=== PATIENT | female | born 1975 | race Caucasian/White ===

== ENCOUNTER 2023-10-26 17:52 | Emergency (ER) | payer OTHER, SELFPAY ==
[2023-10-26] VITALS (12 sets, daily range): BP systolic 138–190; BP diastolic 85–112; PULSE 79–108; RESP 6–99; TEMP 36.7; O2SAT 96–100; BMI 35.8
--- NOTE | ~2023-10-26 | XR_ITS ---
EXAMINATION: XR WRIST, RIGHT CLINICAL INFORMATION: Fall, deformity. COMPARISON: None available. TECHNIQUE: Two views of the right wrist. FINDINGS: Comminuted, impacted and displaced distal radial fracture with likely intra-articular extension. The distal fragment is displaced radially and dorsally. Displaced ulnar styloid fracture. Significant surrounding soft tissue swelling. No unexpected radiopaque foreign bodies. XR/XR wrist RT min 3V IMPRESSION: 1. Comminuted, impacted and displaced distal radial fracture. 2. Displaced ulnar styloid fracture.
--- NOTE | ~2023-10-26 | XR_ITS ---
EXAMINATION: XR WRIST, RIGHT CLINICAL INFORMATION: Postreduction COMPARISON: Prereduction images TECHNIQUE: Two views of the right wrist. FINDINGS: Patient is now in a fiberglass splint which does obscure fine bony detail. There is is some improved angulation to the still distal dorsal angulated distal radial intra-articular fracture but this has improved in alignment from the reduction images. There is still step-off to the ulnar styloid fracture component. XR/XR wrist RT 2V IMPRESSION: Improved angulation to the distal radial fracture. There is still some step-off to the ulnar styloid fracture component.
--- NOTE | 2023-10-26 17:58 | ED.GENADULT ---
HPI - General Adult General Chief complaint: Extremity Injury, Upper Stated complaint: Fall, arm deformities Time Seen by Provider: 10/26/23 17:57 Source: patient, family (patient's daughter) and EMS Mode of arrival: EMS Limitations: no limitations History of Present Illness HPI narrative: Patient is a 48 year old assigned female at with no reported medical history presenting to the emergency department today with right wrist pain. Patient states that there was something slick on the floor when she slipped on it and landed on her outstretched right wrist. Patient denies any head strike, loss of consciousness, dizziness, lightheadedness, abdominal pain, nausea, vomiting, fever, chills, blurry vision, double vision, loss of vision, chest pain, difficulty breathing, shortness of breath, back pain, night sweats, pain with urination, increased urinary frequency, increased urinary urgency, blood in her urine or stool, syncope or a near syncopal episode, bowel incontinence, bladder incontinence, bowel retention, bladder retention, or any other complaints at this time. Onset (ago): minute(s) Location: right and upper extremity Radiation: non-radiation Severity: moderate Severity scale (1-10): 6 Quality: aching Pain Consistency: constant Relieving factors: immobilization Exacerbating factors: movement Associated symptoms: denies other symptoms Treatments prior to arrival: none Related Data Previous Rx's Medication Instructions Recorded oxycodone 10 mg tablet 10 mg PO Q6H PRN pain #7 tabs 10/26/23 Allergies Allergy/AdvReac Type Severity Reaction Status Date / Time No Known Allergies Allergy Verified 10/26/23 18:07 Review of Systems Constitutional: Constitutional: Reports no additional constitutional complaints, Denies chills, Denies fever(s) and Denies night sweats Eyes: Eyes: Reports no additional eye complaints, Denies blurry vision, Denies change in vision, Denies diplopia, Denies eye discharge, Denies loss of vision and Denies eye pain ENT: Denies dizziness Cardiovascular: Cardiovascular: Reports no additional cardiovascular complaints, Denies chest pain, Denies lightheadedness, Denies Loss of Consciousness and Denies dyspnea Respiratory: Respiratory: Reports no additional respiratory complaints and Denies dyspnea Gastrointestinal: Gastrointestinal: Reports no additional gastrointestinal complaints, Denies abdominal pain, Denies melena, Denies hematochezia, Denies change in bowel habits and Denies change in stool character Genitourinary: Genitourinary: Denies hematuria, Denies urinary frequency, Denies dysuria, Denies urinary incontinence, Denies urinary hesitancy and Denies urinary urgency Musculoskeletal: Musculoskeletal: Reports no additional musculoskeletal complaints, Denies numbness and Denies tingling Comments: right wrist pain Neurologic: Denies dizziness, Denies loss of vision, Denies numbness and Denies tingling Psychiatric: Psychiatric: Reports no additional psychiatric complaints Endocrine: Endocrine: Reports no additional endocrine complaints Hematologic/Lymphatic: Hematologic/Lymphatic: Reports no additional hematologic/lymphatic complaints Allergic/Immunologic: Allergic/Immunologic: Reports no additional allergic/immunologic complaints PMFSH Past Medical History Attestation statement: The following information was validated with the patient. (patient's daughter validated all information) Source: old records reviewed, obtained from family (patient's daughter provided additional history and confirmed the history provided by the patient) and nursing notes reviewed Social History Social History Smoked in Last 30 Days: Yes Use of substances other than those prescribed or required for medical reasons: No Advance Directives: No Advance Directives Information Provided: No Patient : No Physical Exam ED Vital Signs: Vital Signs - 24 hr 10/26/23 18:10 10/26/23 18:57 10/26/23 19:00 Temperature 98.0 F Pulse Rate 94 89 97 Respiratory Rate 20 14 15 Blood Pressure 147/89 H 138/88 Pulse Oximetry 97 99 96 Oxygen Delivery Method Room Air Nasal Cannula Nasal Cannula Oxygen Flow Rate 100 2 10/26/23 19:03 10/26/23 19:10 10/26/23 19:15 Temperature Pulse Rate 97 103 H 108 H Respiratory Rate 14 6 L 10 L Blood Pressure 138/88 190/112 H 183/103 H Pulse Oximetry 100 98 100 Oxygen Delivery Method Oxygen Flow Rate 10/26/23 19:16 10/26/23 19:17 10/26/23 19:19 Temperature Pulse Rate 100 101 H 96 Respiratory Rate 10 L 10 L 8 L Blood Pressure 183/103 H 183/103 H 172/95 H Pulse Oximetry 99 99 Oxygen Delivery Method Nasal Cannula Oxygen Flow Rate 5 10/26/23 19:24 10/26/23 20:00 Temperature Pulse Rate 91 79 Respiratory Rate 10 L 99 H Blood Pressure 163/97 H 146/85 H Pulse Oximetry 100 100 Oxygen Delivery Method Nasal Cannula Room Air Oxygen Flow Rate 5 BMI result Body Mass Index 35.8 Const General: cooperative, no acute distress, alert and awake Nutritional Appearance: well nourished Orientation/consciousness: patient oriented x3 Limitations: no limitations HENMT Head: Yes normal to inspection and Yes atraumatic Ears: hearing grossly normal bilaterally and external ears normal General nose exam: Normal external nose present, no nasal discharge noted and no epistaxis Face and sinus: Yes normal facial exam, No abrasion and No laceration Mouth: Normal oral and palatal mucosa present, no drooling and no muffled voice Eyes General: appearance normal, both eyes and all related structures Periorbital: periorbital findings normal Eyelids: Yes eyelids normal Conjunctivae: conjunctivae normal Pupils: Equal, round and reactive pupils present EOM: EOMs intact bilaterally Neck Neck: Yes normal visual inspection, Yes full ROM and Yes no lymphadenopathy Chest Chest palpation & inspection: normal inspection of the chest Resp Effort & Inspection: normal respiratory effort and able to speak in complete sentences GI Inspection: Yes normal to inspection Neuro General: patient oriented x3 and moves all extremities Cranial nerves: Yes Equal, round and reactive pupils present Cognition (Neuro): normal cognition Motor exam (neuro): 5/5 motor strength present throughout Sensory Exam: Normal double simultaneous stimulation for sensation Coordination: [id number] test normal Extrem Other: obvious right wrist deformity, pain with palpation to the right wrist General: Yes capillary refill normal Psych Appearance: grossly normal Mental Status: mental status grossly normal Affect: normal affect Attitude: cooperative Thought process: Normal thought process present Thought content: Normal thought content present Insight: Good insight present (Psych) Course Reevaluation(s) Reevaluation #1: I witnessed the sedation and reduction by Giancarlo PAC Time: 19:16 Medications Administered Discontinued Medications Generic Name Dose Route Start Last Admin Trade Name Freq PRN Reason Stop Dose Admin Bupivacaine HCl 10 ml 10/26/23 19:00 10/26/23 19:05 Bupivacaine Mpf 0.25 % 10 Ml Vial IJ 10/26/23 19:01 10 ml ONCE ONE Administration Ketamine HCl 100 mg 10/26/23 19:00 10/26/23 19:05 Ketamine Hcl/Ns 50 Mg/5 Ml Syringe 1 mg/kg (97.522 mg) 10/26/23 19:01 100 mg IVPUSH Administration ONCE ONE Lidocaine HCl 10 ml 10/26/23 18:36 10/26/23 19:05 Lidocaine Hcl 1 % Mpf 5 Ml Vial SUBCUT 10/26/23 18:37 10 ml ONCE ONE Administration Morphine Sulfate 4 mg 10/26/23 18:22 10/26/23 18:23 Morphine Sulfate 4 Mg/Ml Cartridge IVPUSH 10/26/23 18:23 4 mg ONCE ONE Administration Protocol Naloxone HCl 8 mg 10/26/23 21:17 10/26/23 21:24 Naloxone Hcl Nasal Take Home 4 Mg Miles NOSTRILALT 10/26/23 21:18 8 mg ONCE ONE Administration Ondansetron HCl 4 mg 10/26/23 18:22 10/26/23 18:23 Ondansetron Hcl 4 Mg/2 Ml Vial IVPUSH 10/26/23 18:23 4 mg ONCE ONE Administration Oxycodone HCl 10 mg 10/26/23 21:13 10/26/23 21:24 Oxycodone Hcl Immed Release 5 Mg Tablet PO 10/26/23 21:14 10 mg ONCE ONE Administration Procedures Orthopedic Fracture Reduction Fracture #1: Time Out Performed: Yes Side: right Fracture Reduction Location: radius and ulna Analgesia: procedural sedation and hematoma block Technique: direct manipulation and traction/counter-traction Post Reduction X-rays Demonstrate: anatomical reduction Post-reduction neuro exam: intact Post-reduction vascular exam: intact Splint Applied: Yes Patient Tolerated Procedure: well Orthopedic Splinting/Casting Injury #1: Side: right Upper Extremity Injury Location: wrist Upper Extremity Immobilizer: sling/shoulder immobilizer and sugar tong splint Procedural Sedation Indication: fracture/dislocation reduction ASA Class: II Mallampati Class: II Time of Last PO Intake: 16:30 Preparation: radiographer cardiac catheterization applied, pulse oximeter, capnometry used, supplemental O2 applied, suction/airway equipment at bedside and IV secured Ketamine: IV Ketamine dose (mg): 100 Patient Tolerated Procedure: well Complications: none Medical Decision Making Medical Decision Making MDM Narrative: Patient is a 48 year old assigned female at with no reported medical history presenting to the emergency department today with right wrist pain. Patient's physical exam was as noted in the physical exam portion of this note. Patient's right wrist x-ray showed a comminuted, impacted, and displaced distal radial and ulnar styloid fracture. I consulted with my attending physician, Dr. Ramachandran. Patient was sedated and the fractures were reduced. Patient's PMS was intact prior to and after reduction. I performed hematoma block into the right wrist. Patient's right wrist was placed in a sugar tong splint, without incident. Patient's PMS was intact prior to and after splint placement. Patient's right arm was placed in a sling for support. Patient's PMS was intact prior to and after sling placement. Patient's right wrist post-reduction x-ray showed improved angulation to the distal radial fracture. I consulted the orthopedic team who recommended splint, sling, and having the patient follow up outpatient. I explained my physical exam findings as well as all test results to the patient and the patient's daughter. I answered all questions asked by the patient and the patient's daughter. I stressed the importance of the patient taking her medication as prescribed. I stressed the importance of the patient following up with her primary care provider and an orthopedic provider. I stressed the importance of the patient returning to the emergency department immediately if her symptoms were to worsen or if she were to develop any dizziness, shortness of breath, difficulty breathing, chest pain, blurry vision, loss of vision, nausea, vomiting, abdominal pain, fever, chills, back pain, or any other complaints. Patient and the patient's daughter verbalized agreement and understanding with this treatment plan and discharge. Differential Diagnosis Differential Diagnoses: The differential diagnosis associated with the presentation includes Ulnar fracture Radial fracture Wrist dislocation Admission/Observation Consideration of admission/observation: Escalation of care including admission/observation considered Patient would have been admitted to the hospital had her work up had any findings where hospital admission was appropriate and her clinical presentation warranted hospital admission. Consult Healthcare Provider Management of the patient was discussed with: Business Relationship Manager (spoke with the orthopedic team as noted in the MDM Rationale portion of this note.) Independent Interpretation I performed an independent interpretation of an: Plain X-Ray Interpretation: My interpretation is in agreement with the radiologist's impression of these imaging studies. EXAMINATION: XR WRIST, RIGHT CLINICAL INFORMATION: Fall, deformity. COMPARISON: None available. TECHNIQUE: Two views of the right wrist. FINDINGS: Comminuted, impacted and displaced distal radial fracture with likely intra-articular extension. The distal fragment is displaced radially and dorsally. Displaced ulnar styloid fracture. Significant surrounding soft tissue swelling. No unexpected radiopaque foreign bodies. XR/XR wrist RT min 3V IMPRESSION: 1. Comminuted, impacted and displaced distal radial fracture. 2. Displaced ulnar styloid fracture. Dictated By: Daisy Waggoner Signed By: Electronically signed by Daisy Waggoner 10/26/23 1846 EXAMINATION: XR WRIST, RIGHT CLINICAL INFORMATION: Postreduction COMPARISON: Prereduction images TECHNIQUE: Two views of the right wrist. FINDINGS: Patient is now in a fiberglass splint which does obscure fine bony detail. There is is some improved angulation to the still distal dorsal angulated distal radial intra-articular fracture but this has improved in alignment from the reduction images. There is still step-off to the ulnar styloid fracture component. XR/XR wrist RT 2V IMPRESSION: Improved angulation to the distal radial fracture. There is still some step-off to the ulnar styloid fracture component. Dictated By: Paul Dunn MD Signed By: Electronically signed by Paul Dunn MD 10/26/231938 Radiology Impression Discussion of test interpretation with radiology: I have reviewed the radiologist's reading. Independent Historian Clinical information obtained from an independent historian. History obtained from or confirmed by: EMS (EMS provided additional history and confirmed the history provided by the patient.) and Other (patient's daughter provided additional history and confirmed the history provided by the patient.) Prescription Management I considered prescription management with: Pain Medication (patient prescribed pain medication) Critical Care Time Critical Care Time Critical Care Time: Yes Total Critical Care Time: 55 Attestation: I spent 55 minutes of Critical Care Time with this patient. This does not include time spent on separately reported billable procedures. Discharge Plan Discharge Clinical Impression: Fracture of wrist, Fracture, radius, Ulnar fracture Patient Disposition: Home, Self-Care Instructions: Wrist Fracture in Adults (ED) Additional Instructions: Follow up with your primary care provider and an orthopedic provider. Only take the prescribed medication for breakthrough pain. If you begin to have any worsening numbness or tingling to the right fingers, you may loosen the DEWEY wrap on your splint, if that does not help - return to the emergency department immediately. Return to the emergency department immediately if your symptoms worsen or if you develop any dizziness, shortness of breath, difficulty breathing, chest pain, blurry vision, loss of vision, nausea, vomiting, abdominal pain, fever, chills, back pain, or any other complaints. Prescriptions: New oxycodone 10 mg tablet 10 mg PO Q6H PRN (Reason: pain) Qty: 7 0RF Rx Instructions: Partial Fill upon patient request. Referrals: [facility] [place] [facility] [Provider Group] (Call to establish and follow up with a primary care provider. If you already have a primary care provider, please follow up with them.) [facility] [place] [facility] [Provider Group] (Call to establish and follow up with a primary care provider. If you already have a primary care provider, please follow up with them.) [facility] [place] [facility] [Provider Group] (Call to establish and follow up with a primary care provider. If you already have a primary care provider, please follow up with them.) [facility] [place] [facility] [Provider Group] (Call to establish and follow up with an orthopedic provider.) Stand Alone Forms: Work/School Release Interventions: ED Discharge Assessment Last Done: 10/26/23 21:40 Discharge Date/Time: 10/26/23 21:40 Print Language: Sinhala
--- NOTE | 2023-10-26 18:10 | PC.NURSE ---
a&ox4, vss and up to date aside from being slightly tachycardic. pt comes in by ambulance d/t possible r wrist fracture - pt slipped on hard wood floor at home - landed on r wrist - deformity/swelling noted. pt verbalizes numbness/tingling throughout right hand. unable to move fingers aside from pinky.
--- NOTE | 2023-10-26 18:20 | PC.NURSE ---
xray bedsdie at this time.
[2023-10-26] MEDS: Morphine Sulfate 4 MG/ML CARTRIDGE IVPUSH (18:23)
[2023-10-26] MEDS: ondansetron HCL 4 MG/2 ML VIAL IVPUSH (18:23)
--- NOTE | 2023-10-26 18:24 | PC.NURSE ---
medication's overridden from bonita d/t ALVA maria order - scanned/documented in MAR according to when medication was pulled. medication administered per provider order.
--- NOTE | 2023-10-26 18:46 | PC.NURSE ---
Pt moved from EMC4 to ED10 for conscious sedation to be performed. Report given to SILVANO Trejo at this time.
[2023-10-26] MEDS: BUPivacaine MPF 0.25 % 10 ML VIAL IJ (19:05)
[2023-10-26] MEDS: Ketamine HCl/NS 50 MG/5 ML SYRINGE 100 MG IVPUSH (19:05)
[2023-10-26] MEDS: Lidocaine HCl 1 % MPF 5 ML VIAL 10 ML SUBCUT (19:05)
--- NOTE | 2023-10-26 20:15 | PC.NURSE ---
Pt is A&Ox4, GCS 15, with warm,dry skin. Reports pain is starting to increase again but it at bay for now. ALVA Garza is speaking with ortho at this time.
[2023-10-26] MEDS: Naloxone HCl Nasal TAKE HOME 4 MG SPRAY 8 MG NOSTRILALT (21:24)
[2023-10-26] MEDS: oxyCODONE HCl Immed Release 5 MG TABLET 10 MG PO (21:24)
== END 2023-10-26 21:40 | disposition home or self-care (01) ==
LOC: HO.ED 21:25
PROVIDERS: Emergency Provider Emergency Medicine; PCP Pediatrics
DX: S52.91XA Unspecified fracture of right forearm, initial encounter for closed fracture (principal); M25.531 Pain in right wrist; W01.10XA Fall on same level from slipping, tripping and stumbling with subsequent striking against unspecified object, initial encounter; Y93.9 Activity, unspecified; Y92.9 Unspecified place or not applicable; Y99.9 Unspecified external cause status; Z79.899 Other long term (current) drug therapy
CPT/HCPCS: 25605; 29125; 73100; 73110; 96374; 96375; 99152; 99284; 99285; J0665; J2270; J2405

== ENCOUNTER 2023-10-31 09:35 | Outpatient (AMB) | payer OTHER, SELFPAY ==
--- NOTE | 2023-10-31 09:41 | A.OFFVIS_ITS ---
Intake Vital Signs 10/31/23 09:48 Height 5 ft 5 in Weight 215 lb BMI 35.8 Handedness Right Intake Visit Reasons: FC- Fracture of wrist, Fracture, radius Intake Note: Noemi is a 48 yr old right hand dominant female who presents today for a fracture care visit s/p slip and fall on 10/26/23. patient reports slip and fall landing on her Right wrist, she was seen at [facility] ED after injury where her fracture was reduced and she was place in a splint. She reports that she is having pain all the time, this pain is felt as a burining, aching and stabbing pain. Some mild numbness and tingling in the finger tips. She is taking tylenol/ibuprofen for her pain, as well as oxycodone prescribed in ED Accompanied by: Daughter Allergies No Known Allergies Allergy (Verified 10/31/23 09:55) HPI FC- Fracture of wrist, Fracture, radius HPI Details Noemi is a 48 year old right hand dominant woman who presents with complaints of a right wrist fracture, S/P fall, DOI: 10/26/23. She is here today with her daughter. She complains of constant pain, which she describes as burning, aching, and stabbing. She slipped and fell on 10/26/23, and was seen in the ED the same day where her wrist was reduced and placed in a sugar-tong splint. She denies having pain about the elbow. She also does not recall any open injuries about the wrist. She reports some mild numbness in her fingertips, which began following her injury. She finds limited pain relief from Tylenol, Advil, or Oxycodone. 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 [facility] Surgical History (Updated 10/31/23 @ 09:51 by Tami Hensley CMA) H/O bilateral breast reduction surgery (~05/2022) Social History (Updated 10/31/23 @ 09:52 by Tami Hensley CMA) Patient Tobacco Use Status: Current someday Tobacco user Current occupation: right hand dominant Review of Systems Const All systems reviewed & are unremarkable except as noted in HPI and below Physical Exam Vital Signs: BMI result Body Mass Index 35.8 Const General: cooperative, healthy appearing and no acute distress Orientation/consciousness: patient oriented x3 HEENT Head: Yes normocephalic and Yes atraumatic Eyes EOM: EOMs intact bilaterally Resp Effort & Inspection: normal respiratory effort and able to speak in complete sentences Cardio Jugular venous distension: no JVD Skin General skin exam: turgor normal Rashes: no rashes Neuro General: patient oriented x3 Extrem Other: Evaluation of Right Upper Extremity: The patient is alert, oriented, and in no acute distress Neuro: Decreased subjective sensation in the median nerve distribution, more normal sensation to the tip of the small finger. Vascular: Cap refill brisk She is in a sugar-tong splint which is clean dry and intact. She is also in a sling. This was not removed today she had undergone a closed reduction in the emergency department. Radiographs: 3 views of the right wrist from 10/26/23 were reviewed by me today in clinic. They show a displaced right distal radius fracture with comminution and intra- articular extension. Post reduction she was at about 45 degrees apex volar. There is also an associated ulnar styloid fracture. Psych Appearance: grossly normal Affect: normal affect Attitude: cooperative Assessment & Plan Assessment & Plan (1) Distal radius fracture, right: Code(s): S52.501A - Unspecified fracture of the lower end of right radius, initial encounter for closed fracture (2) Carpal tunnel syndrome of right wrist: Code(s): G56.01 - Carpal tunnel syndrome, right upper limb Plan Assessment & Plan: 1. Right Distal radius fracture, comminuted intra-articular with significant displacement S/P fall, DOI: 10/26/23 Reduced in ED: 10/26/23, still with about 45 degrees of apex volar angulation remaining 2. Right carpal tunnel syndrome S/P fall, DOI: 10/26/23 With decreased subjective sensation to her fingertips following her injury I educated her about these conditions I discussed operative and non-operative treatment options The patient would like to proceed with surgery The risks and benefits of operative treatment were discussed with the patient and the patient wishes to proceed with surgery. These risks include, but are not limited to risk of damage to blood vessels, nerves, tendons, infection, recurrence, incomplete relief of preoperative symptoms, persistent pain, possible need for further surgery and the risks associated with regional blocks and anesthesia. The plan is to take the patient to the operating room sometime in the next week for the following procedures: 1. Right distal radius ORIF, under general 2. Right carpal tunnel release, under general All of the preoperative paperwork including the consent was filled out today. All the patient's questions were answered. The patient understands that they will be contacted by our pharmacy scheduler soon to schedule this procedure She is currently on Oxycodone, given to her in the ED. I prescribed 8 tablets of 5 mg oxycodone to take at bedtime. I also encouraged her to continue elevating her wrist during the day and at bedtime.. She denies Diabetes, blood thinners, asthma, heart, lung, kidney issues Scribed for Betty Guan MD by Omer Mon, biomedical scientist, on 10/31/23 at 10:05 AM, EST. Medications: New oxycodone Partial Fill upon patient request. 5 mg PO BEDTIME PRN 7 tab-caps 0RF pain Coding Level of Care Code New Pt Level 4 (51460) Diagnoses Distal radius fracture, right S52.501A Carpal tunnel syndrome of right wrist G56.01
[2023-10-31 09:48] VITALS: BMI 35.8
== END 2023-10-31 10:44 | disposition home or self-care (01) ==
PROVIDERS: PCP Pediatrics; Visit Provider Orthopaedic Surgery
DX: S52.501A Unspecified fracture of the lower end of right radius, initial encounter for closed fracture (principal); G56.01 Carpal tunnel syndrome, right upper limb
CPT/HCPCS: 99204

== ENCOUNTER → 2023-10-31 09:35 | Outpatient (BNVA) | payer OTHER, SELFPAY | PROVIDERS: PCP Pediatrics; Visit Provider Orthopaedic Surgery | DX: S52.501A Unspecified fracture of the lower end of right radius, initial encounter for closed fracture (principal); G56.01 Carpal tunnel syndrome, right upper limb | CPT/HCPCS: 99202 ==

== ENCOUNTER 2023-11-06 09:00 | Day surgery (SDC) | payer OTHER, SELFPAY ==
--- NOTE | 2023-11-03 08:49 | HO.ANESPROP2 ---
Documented by User: Alisha Wong NP 11/03/23 08:50 HPI - Anesthesia Eval Consult details Narrative: 48yo F for Right Radius Distal Fracture ORIF, Right Carpal Tunnel Release PMFSH Active Problems Active Problems: All Active Problems (Updated 10/31/23 @ 10:15 by Omer Mon) Carpal tunnel syndrome of right wrist (Acute) Distal radius fracture, right (Acute) Surgical History Surgical History H/O bilateral breast reduction surgery (~05/2022) Social History Social History Patient Tobacco Use Status: Current someday Tobacco user Advance Directives: No Advance Directives Information Provided: Yes Current occupation: right hand dominant Meds Allergies Allergy/AdvReac Type Severity Reaction Status Date / Time No Known Allergies Allergy Verified 10/31/23 09:55 Assessment and Plan Assessment Anesthesia Assessment: Chart Reviewed Documented by User: Luma Alas MD 11/06/23 09:28 PMFSH Family History Family history of problems with anesthesia: No Surgical History Surgical History H/O bilateral breast reduction surgery (~05/2022) History of Problems with Anesthesia: No Social History Social History Patient Tobacco Use Status: Current someday Tobacco user Advance Directives: No Advance Directives Information Provided: Yes Current occupation: right hand dominant Meds Allergies Allergy/AdvReac Type Severity Reaction Status Date / Time No Known Allergies Allergy Verified 10/31/23 09:55 Exam Airway Mallampati Class: II TM Dist: >3cm Neck ROM: Full Heart: rrr Lungs: cta Assessment and Plan Assessment Anesthesia Assessment: Anesthesia Plan Discussed Final Anesthetic Review Family History of Problems with Anesthesia: No History of Problems with Anesthesia: No NPO: Yes ASA Class: II Final Preanesthetic Review: No Changes in Pt Med Stat, Meds/Allgs Chart Reviewed, Consent Obtained/Reviewed and Anes Risks/Benef Reviewed Patient Risk: Low Procedure Risk: Intermediate Anesthetic Plan Anesthetic Plan: GA and Regional Block Disposition: Standard PACU
[2023-11-06] VITALS (16 sets, daily range): BP systolic 119–141; BP diastolic 56–95; PULSE 59–76; RESP 14–22; TEMP 36.3–37.1; O2SAT 93–97
--- NOTE | ~2023-11-06 | FL_ITS ---
EXAMINATION: XR FLUOROSCOPY WITH IMAGES CLINICAL INFORMATION: Radius distal fracture ORIF, carpal tunnel, right. COMPARISON: Previous x-ray 10/26/2023 TECHNIQUE: Fluoroscopy Supervised By: Dr. Betty Guan. Fluoroscopy Time: 22.8 seconds. Cumulative Dose: 0.6335 mGy. DAP: 0.0383 Gycm2. Images: 4. FINDINGS: There is a new plate and screws transfixing the right distal radius fracture with improved alignment. There is a minimally displaced ulnar styloid fracture that appears unchanged. FL/FL guidance in OR IMPRESSION: Fluoroscopic guidance for ORIF of right distal radius fracture.
--- NOTE | 2023-11-06 09:12 | W.PM.OPN ---
Operative Note Operative Note Date of Service: 11/06/23 Narrative: Operative Note Narrative: Preop diagnosis: 1. right Distal radius fracture , comminuted and intra-articular 2. Right acute carpal tunnel syndrome Postop diagnosis: Same Procedure: 1. Distal radius fracture open reduction internal fixation , 2 part intra-articular 2. Right carpal tunnel release 3. Right brachioradialis tenotomy Surgeon: Betty Guan MD Anesthesia: General anesthesia plus regional block Findings: displaced intra-articular distal radius fracture Implants: A 3 hole standard Accu Med volar locking plate, with 5 X 2.3 mm locking pegs/screws, and 3 3.5 mm cortical screws Tourniquet time: 60 minutes EBL: 5.0 ml Specimen: None Drains: None Complications: None Disposition: Brought to the recovery room in stable condition Plan: Follow-up in 10-14 days for wound check, suture removal and postop radiographs The patient will be placed in a volar wrist splint. Encouraged no lifting of anything heavier than a cell phone. Please encourage active and passive range of motion of the digits. Follow-up at 4-5 weeks postop for repeat radiographs. Indications: The patient is a 48 year old woman with a comminuted intra-articular right distal radius fracture and acute carpal tunnel syndrome . The risks and benefits of operative treatment, including but not limited to risk of damage to blood vessels, nerves, tendons, infection, recurrence, persistent pain or numbness, incomplete resolution of preoperative symptoms, or need for further surgery were discussed with the patient and they wished to proceed with surgery. Procedure: Once consent was obtained patient was brought back to the operating suite and placed in the operating table in a supine position. A regional block was performed by the anesthesia team. Perioperative antibiotics and anesthesia was administered by the anesthesia team. A tourniquet was applied to the proximal aspect of the right upper extremity and the limb was prepped and draped in a standard surgical fashion. The limb was elevated exsanguinated with Esmarch bandage and the tourniquet inflated to 250 mm of mercury for a total to tourniquet time of 60 minutes. Once assured that we had a good block, a 2.0 cm longitudinal incision was made centered over the right carpal tunnel. The incision was made through the skin to the subcutaneous tissues using a #15 blade. Dissection was made down to the level of the transverse carpal ligament with care being taken to protect the palmar cutaneous nerve. Once the transverse carpal ligament was clearly visualized, a longitudinal incision was made in the transverse carpal ligament 1st using a #15 blade, then using tenotomy scissors under direct visualization. Care was taken to look for and protect the motor branch of the median nerve when seen in this area. Once satisfied with our carpal tunnel release the wound was irrigated with normal saline. The FluoroScan was used throughout the case to assess our reduction, and facilitate implant placement. A gentle closed reduction was 1st performed on the patient's right distal radius fracture. Was assessed radiographically before proceeding with the reduction internal fixation. I then made an 8 cm longitudinal incision over the distal aspect of the flexor carpi radialis tendon. The incision was made through the skin to the subcutaneous tissue using a 15. Blade. Then carefully dissected down to flexor carpi radialis tendon she tenotomy scissors. The FCR tendon sheath was then incised longitudinally using tenotomy scissors under direct visualization. The FCR tendon was then retracted ulnarly. I then made a longitudinal incision in the volar forearm fascia through the floor of FCR tendon sheath using tenotomy scissors under direct visualization. I identified the interval between the radial artery and the flexor tendons. This interval was developed further with my index finger, releasing some of the muscular fibers of the flexor pollicis longus. A dull weatlander retractor was then placed. I then created an ulnarly based flap of the pronator quadratus by releasing the radial and distal edges using a 15. Blade. A Green elevator was used to elevate the pronator quadratus from the volar surface of the distal radius. This then revealed to us our distal radius fracture. fracture was apex volar with comminution and fracture lines extending into the articular surface. I 1st performed a tenotomy of the brachioradialis tendon at its insertion. This was done to facilitate our closed reduction and decrease the likelihood of displacement of the fracture at the articular surface. An open reduction was then performed on our distal radius fracture. I then placed a short Standard 3 hole Accu Med volar locking plate on the volar surface of the distal radius. I placed a single K-wire through the distal aspect of the plate and into the distal radius. This was assessed using fluoroscopic images. I was satisfied with the placement of our plate. I then placed 5 X 2.3 mm locking screws/pegs in the distal aspect of the plate and distal radius by 1st drilling bicortically with a 1.8 mm drill bit, measuring with a depth gauge, and placing the appropriate length locking screws/pegs. The placement of our plate and screws was then assessed again using fluoroscopic images. The once satisfied with the placement of the volar locking plate and screws on the distal aspect of the distal radius, the plate was then reduced to the shaft of the radius. I then placed 3 3.5 mm cortical screws to the proximal aspect of the plate and into the shaft of the radius. This was done by 1st drilling bicortically with a 2.8 mm drill bit, measuring with a depth gauge, and placing the appropriate length screw. Final radiographs were then obtained. The DRUJ was assessed and found to be stable on exam. I was satisfied with our reduction and placement of all implants. final fluoroscopic images were then obtained. At this point the wound was irrigated with normal saline. The pronator quadratus in poor condition near the fracture site, and not repairable. The tourniquet was then deflated and hemostasis was obtained with a brief period of local pressure and bipolar monopolar electrocautery. The subcutaneous layer was then reapproximated using some 4-0 Vicryl suture, and the skin edges were reapproximated using some 5 0 Prolene suture. The wound was then infiltrated with some 1% lidocaine with epinephrine postop pain control. A sterile dressing and a short dorsal splint allowing for active flexion and extension of the digits was applied. The patient appears to have tolerated the procedure well and with no complications. All digits were well vascularized conclusion of the case.
--- NOTE | 2023-11-06 12:06 | MHC.SHP ---
Pre-Procedural Eval Section A Date of Service: 11/06/23 The patient is an INPATIENT: No Changes since office visit: No Cold of Flu in the past 2 weeks, No New Medical Problems, No Changes in Medication and No Patient answered all questions The History & Physical has been completed within 30 days and I have reviewed it.: Yes Section B Chief Complaint: fx of the lower end of right radius,carpal tunnel Allergies: Allergies Allergy/AdvReac Type Severity Reaction Status Date / Time No Known Allergies Allergy Verified 10/31/23 09:55 Plan I have reviewed the history and physical and performed a pertinent physical examination on my patient. No changes have occurred unless specified. Time Spent With Patient Time: Total time managing care of this patient today ____ minutes.
[2023-11-06] MEDS: oxyCODONE HCl Immed Release 5 MG TABLET PO (16:01)
== END 2023-11-06 16:37 | disposition home or self-care (01) ==
PROVIDERS: PCP Pediatrics; Visit Provider Orthopaedic Surgery
PROC: (CPT 25608; principal; 2023-11-06 10:30)
PROC: (CPT 64721; 2023-11-06 10:30)
DX: S52.571A Other intraarticular fracture of lower end of right radius, initial encounter for closed fracture (principal); G56.01 Carpal tunnel syndrome, right upper limb; R20.0 Anesthesia of skin; W01.0XXA Fall on same level from slipping, tripping and stumbling without subsequent striking against object, initial encounter; Y93.9 Activity, unspecified; Y92.9 Unspecified place or not applicable; Y99.9 Unspecified external cause status; F17.210 Nicotine dependence, cigarettes, uncomplicated
CPT/HCPCS: 25608; 25290; 64721; 81025; C1713; C1769; J0131; J0665; J0690; J1100; J2250; J2405; J2704; J2795; J3010

== ENCOUNTER → 2023-11-06 09:00 | Outpatient (BNV) | payer OTHER, SELFPAY | PROVIDERS: PCP Pediatrics; Visit Provider Orthopaedic Surgery | DX: G56.01 Carpal tunnel syndrome, right upper limb (principal); S52.571A Other intraarticular fracture of lower end of right radius, initial encounter for closed fracture | CPT/HCPCS: 25608; 64721 ==

== ENCOUNTER 2023-11-07 14:54 | Outpatient (AMB) | payer OTHER, SELFPAY ==
--- NOTE | 2023-11-07 15:33 | A.OFFVIS_ITS ---
Intake Intake Visit Reasons: P/O rt distal radius/ CTR 11/06/23 Intake Note: Noemi 48 yr old female presents today for her P/O RT hand distal radius and CTR 11/06/23. States she is taking her pain medication as prescribed however she is still in severe pain. Allergies No Known Allergies Allergy (Verified 11/07/23 15:40) HPI P/O rt distal radius/ CTR 11/06/23 HPI Details Noemi is a 48 year old right hand dominant woman who presents with complaints of continued pain today, following her distal radius ORIF, carpal tunnel release, and brachioradialis tenotomy, DOS: 11/06/23. She say she has been taking her prescribed pain medication as instructed, but her pain worsened in the middle of the night when her block wore off. She says an alternative nerve block was performed, which gave her relief only to the radial aspect of her wrist, not the ulnar aspect. She reports little to no relief from using ice packs as well. She has been alternating her Percocets and Ibuprofen at home as instructed. She says her sensation in her thumb, index, and middle fingers have improved somewhat since her surgery. She reports normal sensation in her small finger. She has a hx of multiple Kidney stones, as well as bilateral breast reduction in the past. She says she has always had trouble with pain medication not working, including following kidney stones and the above-noted surgical procedure. She denies any recreational drug use and says she rarely consumes alcohol. [facility] Surgical History H/O bilateral breast reduction surgery (~05/2022) Social History Comment: counts correct Patient Tobacco Use Status: Current someday Tobacco user Tobacco use type: Cigarette Second Hand Smoke Exposure: No Current occupation: right hand dominant Review of Systems Const All systems reviewed & are unremarkable except as noted in HPI and below Physical Exam Const General: no acute distress and alert Orientation/consciousness: patient oriented x3 Neuro General: patient oriented x3 Extrem Other: The patient was alert oriented and tearful today in clinic We removed her sling. Her surgical dressing and splint is clean dry and intact. Her elbow is not painful and she can actively flex and extend at the elbow. The proximal aspect of her forearm that is visible proximal to the splint is soft and not particularly tender. No inappropriate swelling. Her fingers are mildly swollen, as we would expect after surgery. She was able to weakly flex and extend her fingers and thumb. She says it is somewhat painful, but it did not appear to be inappropriately painful. I have no concerns about compartment syndrome given today's exam, and did not feel it was necessary to remove her sterile surgical dressing. Continues to have decreased sensation in the median nerve distribution, unchanged so far following surgery. Normal sensation to the small finger. Her dressing is intact and not too tight Her fingers are warm and pink Psych Appearance: grossly normal Affect: normal affect Attitude: cooperative Assessment & Plan Assessment & Plan (1) Distal radius fracture, right: Code(s): S52.501A - Unspecified fracture of the lower end of right radius, initial encounter for closed fracture (2) Carpal tunnel syndrome of right wrist: Code(s): G56.01 - Carpal tunnel syndrome, right upper limb Plan Assessment & Plan: 1. Right Distal radius fracture, S/P ORIF S/P fall, DOI: 10/26/23 Reduced in ED: DOS: 11/06/23 2. Right carpal tunnel syndrome, S/P release S/P fall, DOI: 10/26/23 DOS: 11/06/23 She still has some numbness, but feels some of her sensation has improved. Patient presents with complaints persistent postoperative pain, with no relief from her Percocet and ibuprofen which he is taking as directed. Of importance she describes a hx pain medications, both narcotic and anti-inflammatory, not working for her following kidney stones, operative procedures and other issues. I do not see any indications of compartment syndrome, ischemia or other problems that could require intervention. Again she has a history of not responding well to pain medications in the postoperative period. I explained that patients likely begin to have more relief post-op day 3 or 4 She will continue to alternate her Percocets and Ibuprofen every 6 hours for this week, and begin to transition to Percocets every 8-10 hours postop day number 4 and 5. We will stay in contact with her and see how she is doing I explained she should keep her wrist elevated above heart level, and ice frequently She will follow up as scheduled with pre-clinic radiographs Scribed for Betty Guan MD by Omer Mon, certified ophthalmic medical technician, on 11/07/23 at 4:05 PM, EST. Coding Level of Care Code Global (40759) Diagnoses Distal radius fracture, right S52.501A Carpal tunnel syndrome of right wrist G56.01
== END 2023-11-07 16:05 | disposition home or self-care (01) ==
PROVIDERS: PCP Pediatrics; Visit Provider Orthopaedic Surgery
DX: S52.501A Unspecified fracture of the lower end of right radius, initial encounter for closed fracture (principal); G56.01 Carpal tunnel syndrome, right upper limb
CPT/HCPCS: 99024

== ENCOUNTER → 2023-11-07 14:54 | Outpatient (BNVA) | payer OTHER, SELFPAY | PROVIDERS: PCP Pediatrics; Visit Provider Orthopaedic Surgery | DX: S52.501D Unspecified fracture of the lower end of right radius, subsequent encounter for closed fracture with routine healing (principal); Z86.69 Personal history of other diseases of the nervous system and sense organs | CPT/HCPCS: 99212 ==

== ENCOUNTER 2023-11-15 10:07 | Outpatient (REF) | payer OTHER, SELFPAY ==
--- NOTE | ~2023-11-15 | XR_ITS ---
EXAMINATION: XR WRIST, RIGHT CLINICAL INFORMATION: Pain in right wrist COMPARISON: Right wrist 10/26/2023 TECHNIQUE: PA, lateral, and oblique views of the right wrist. Study was done with the splint off. FINDINGS: Interval open reduction and internal fixation of comminuted, impacted and displaced distal radial fracture with intra-articular extension. Alignment appears anatomic. Displaced radial ulnar styloid fractures again noted. XR/XR wrist RT min 3V IMPRESSION: Interval open reduction and internal fixation of comminuted, impacted and displaced distal radial fracture with intra-articular extension.
== END 2023-11-15 10:08 | disposition home or self-care (01) ==
LOC: HO.HOSX 10:07
PROVIDERS: Visit Provider Physician Assistant
DX: S52.501D Unspecified fracture of the lower end of right radius, subsequent encounter for closed fracture with routine healing (principal); M25.531 Pain in right wrist; G56.01 Carpal tunnel syndrome, right upper limb; X58.XXXD Exposure to other specified factors, subsequent encounter
CPT/HCPCS: 73110; 99212

== ENCOUNTER 2023-11-15 12:22 | Outpatient (AMB) | payer OTHER, SELFPAY ==
--- NOTE | 2023-11-15 12:34 | A.OFFVIS_ITS ---
Intake Intake Visit Reasons: PO-Rt CTR, Distal Radius ORIF 11/06/23 AR Intake Note: Noemi a 48 year old female presents today for a post operative right CTR & distal radius ORIF on 11/06/23 AR. Patient reports discomfort in sling, stating rough edges however once removed for xrays discomfort subsided. Currently complains of sharp pain and aches. Allergies No Known Allergies Allergy (Verified 11/15/23 12:46) HPI PO-Rt CTR, Distal Radius ORIF 11/06/23 AR HPI Details 48-year-old right hand dominant female giovanni malloy returns to the office today for post-op right CTR & distal radius ORIF, 11/06/[address] Guan. She continues to have a sharp shooting pain and aches in her wrist as well as numbness and tingling throughout the day. She also c/o discomfort in her sling due to rough edges which alleviates with removing the sling. She is doing well otherwise and has no other concerns today. [facility] Surgical History H/O bilateral breast reduction surgery (~05/2022) Social History Comment: counts correct Patient Tobacco Use Status: Current someday Tobacco user Tobacco use type: Cigarette Second Hand Smoke Exposure: No Current occupation: right hand dominant Review of Systems Const All systems reviewed & are unremarkable except as noted in HPI and below Physical Exam Extrem Other: Right wrist: Incision clean, dry and intact. No erythema or drainage. She has good sensation throughout the wrist and hand. Pulses are intact. Results Reviewed Results Reviewed: Xrays were obtained in the office today and personally reviewed by me of the right wrist show intact hardware with stable alignment Assessment & Plan Assessment & Plan (1) Distal radius fracture, right: Code(s): S52.501A - Unspecified fracture of the lower end of right radius, initial encounter for closed fracture Qualifiers: Encounter type: subsequent encounter Fracture type: closed Fracture morphology: unspecified fracture morphology Fracture healing: with routine healing Qualified Code(s): S52.501D - Unspecified fracture of the lower end of right radius, subsequent encounter for closed fracture with routine healing (2) Carpal tunnel syndrome of right wrist: Code(s): G56.01 - Carpal tunnel syndrome, right upper limb Plan She was placed in a Velcro wrist splint which she will wear at all times. She can remove the splint for hygiene only. I did advise her to work on exercises of hand to flex and extend the digit and I also reviewed the exercises with her and demonstrated in the office today. By the end of the day, she was able to fully extend and bend the digit. I would like to see her back in 2-[address] Guan and new x-rays, sooner if needed. Orders: Orders XR wrist RT min 3V Today M25.531 - Pain in right wrist Patient Instructions: Scribed for Daryn Guardado PA-C, by Flakito Canales medical lab director, on 11/15/2023 at 12:30 PM MADHU. Daryn Urena PA-C, have personally reviewed and agree with the information entered by the scribe. Coding Level of Care Code Global (07954) Diagnoses Closed fracture of distal end of right radius with routine healing, unspecified fracture morphology, subsequent encounter S52.501D Encounter type: subsequent encounter Fracture type: closed Fracture morphology: unspecified fracture morphology Fracture healing: with routine healing Carpal tunnel syndrome of right wrist G56.01
== END 2023-11-15 13:42 | disposition home or self-care (01) ==
PROVIDERS: PCP Pediatrics; Visit Provider Physician Assistant
DX: S52.501D Unspecified fracture of the lower end of right radius, subsequent encounter for closed fracture with routine healing (principal); G56.01 Carpal tunnel syndrome, right upper limb
CPT/HCPCS: 99024

== ENCOUNTER 2023-12-06 11:33 | Outpatient (REF) | payer OTHER, SELFPAY ==
--- NOTE | ~2023-12-06 | XR_ITS ---
EXAMINATION: XR WRIST, RIGHT CLINICAL INFORMATION: Pain in right wrist COMPARISON: Right wrist 11/15/2023 TECHNIQUE: PA, lateral, and oblique views of the right wrist. FINDINGS: The patient is status post open reduction and internal fixation of comminuted impacted and displaced distal radial fracture with intra-articular extension. Alignment appears anatomic. Displaced radial ulnar styloid fractures are again noted. XR/XR wrist RT min 3V IMPRESSION: Status post open reduction and internal fixation of comminuted impacted and displaced distal radial fracture with intra-articular extension. Alignment appears anatomic
== END 2023-12-06 11:34 | disposition home or self-care (01) ==
LOC: HO.HOSX 11:33
PROVIDERS: Visit Provider Orthopaedic Surgery
DX: S52.501D Unspecified fracture of the lower end of right radius, subsequent encounter for closed fracture with routine healing (principal); G56.01 Carpal tunnel syndrome, right upper limb
CPT/HCPCS: 73110; 99212

== ENCOUNTER 2023-12-06 11:59 | Outpatient (AMB) | payer OTHER, SELFPAY ==
--- NOTE | 2023-12-06 12:13 | A.OFFVIS_ITS ---
Intake Intake Visit Reasons: PO-rt distal radius/ CTR 11/06/23 Intake Note: Noemi 48 yr old female presents today for her P/O visit for her right CTR & Distal Radius ORIF RPM check from 11/06/23 AR. Patient states she has continues to wear her brace as directed. Currently states she is limited ROm and has pain. States she wears brace when she out and about and removes it when she is hime. Allergies No Known Allergies Allergy (Verified 12/06/23 12:23) HPI PO-rt distal radius/ CTR 11/06/23 HPI Details Noemi is a 48 year old right hand dominant woman who returns S/P right distal radius ORIF, carpal tunnel release, and brachioradialis tenotomy, DOS: 11/06/23. Her right wrist pain has improved. She is seen today wearing her wrist splint, she says she wears this when out of the house and removes this when at home. She says her sensation in her thumb, index, and middle fingers have improved somewhat since her surgery. She also reports that she gets a painful burning sensation on the dorsal radial aspect of her right wrist and hand. She says even the sleeve of her blouse or shirt can feel painful in this area. She reports that her skin on the tips of her fingers is very dry and constantly peeling despite her applying moisturizer several times a day. She has a hx of multiple Kidney stones, as well as bilateral breast reduction in the past. She says she has always had trouble with pain medication not working, including following kidney stones and the above-noted surgical procedure. She denies any recreational drug use and says she rarely consumes alcohol. She did have significant pain even with Percocet on board, following her surgery. [facility] Surgical History H/O bilateral breast reduction surgery (~05/2022) Social History Comment: counts correct Patient Tobacco Use Status: Current someday Tobacco user Tobacco use type: Cigarette Second Hand Smoke Exposure: No Current occupation: right hand dominant Review of Systems Const All systems reviewed & are unremarkable except as noted in HPI and below Physical Exam Const General: no acute distress and alert Orientation/consciousness: patient oriented x3 Neuro General: patient oriented x3 Extrem Other: The patient was alert oriented and in no acute distress The incisions are well-healed with no erythema drainage or evidence of infection. Her elbow is not painful and she can actively flex and extend at the elbow. She was able to make a weak fist and extend all her digits The skin on the tips of all digits is intact. It maybe a little dry but is otherwise healthy-appearing. Her swelling and ecchymosis is resolving nicely. She has ~15-20 degrees wrist extension She has ~30 degrees wrist flexion Wrist pronation ~70 degrees Wrist supination to neutral DRUJ stable on exam Almost normal sensation to the tips of all digits, improved from prior. Good APB muscle belly firing Some hypersensitivity to the superficial radial nerve distribution, but sensation intact Cap refill is brisk Radiographs: 3 views of the right wrist were taken and viewed by me today in clinic. They show satisfactory fracture alignment and position of all implants. Psych Appearance: grossly normal Affect: normal affect Attitude: cooperative Assessment & Plan Assessment & Plan (1) Distal radius fracture, right: Code(s): S52.501A - Unspecified fracture of the lower end of right radius, initial en counter for closed fracture Qualifiers: Encounter type: subsequent encounter Fracture healing: with routine healing Fracture morphology: unspecified fracture morphology Fracture type: closed Qualified Code(s): S52.501D - Unspecified fracture of the lower end of right radius, subsequent encounter for closed fracture with routine healing (2) Carpal tunnel syndrome of right wrist: Code(s): G56.01 - Carpal tunnel syndrome, right upper limb Plan Assessment & Plan: 1. Right Distal radius fracture, S/P ORIF S/P fall, DOI: 10/26/23 DOS: 11/06/23 2. Right carpal tunnel syndrome, S/P release S/P fall, DOI: 10/26/23 DOS: 11/06/23 She still has some numbness, but feels some of her sensation has improved. 3. Some hypersensitivity in the superficial radial nerve distribution. She says the sensation is intact in this area however. The patient appears to be doing well post-operatively, though still with complaints of pain. I educated her about the post-operative course I discussed activity modifications, she is to work on hand & wrist ROM exercises at home. She is to lift nothing heavier than a cellphone, and can begin to use her hand for lightweight activities. She will massage her hand and wrist to work on desensitization I ordered OT hand therapy for her to work on ROM, desensitization, and normalizing hand function She will continue to wear her wrist splint when out of the house for the next 3 weeks. She is to remove this when at home or when at rest at work. 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 no Radiographs necessary unless she falls or has a re-injury Scribed for Betty Guan MD by Omer Mon medical lab specialist, on 12/06/23 at 12:40 PM, EST. Orders: Orders XR wrist RT min 3V Today M25.531 - Pain in right wrist OT Evaluation and Treatment Today G56.01 - Carpal tunnel syndrome, right upper limb, S52.501A - Unspecified fracture of the lower end of right radius, initial encounter for closed fracture Coding Level of Care Code Global (48551) Diagnoses Closed fracture of distal end of right radius with routine healing, unspecified fracture morphology, subsequent encounter S52.501D Encounter type: subsequent encounter Fracture healing: with routine healing Fracture morphology: unspecified fracture morphology Fracture type: closed Carpal tunnel syndrome of right wrist G56.01
== END 2023-12-06 13:06 | disposition home or self-care (01) ==
PROVIDERS: PCP Pediatrics; Visit Provider Orthopaedic Surgery
DX: S52.501D Unspecified fracture of the lower end of right radius, subsequent encounter for closed fracture with routine healing (principal); G56.01 Carpal tunnel syndrome, right upper limb
CPT/HCPCS: 99024

== ENCOUNTER 2024-01-09 12:58 | Outpatient (AMB) | payer OTHER, SELFPAY ==
--- NOTE | 2024-01-09 13:34 | A.OFFVIS_ITS ---
Intake Intake Visit Reasons: PO-rt distal radius/ CTR 11/06/23-ROM check Intake Note: Tamika 48 yr old female presents today for her PO visit for her right hand distal radius/ CTR 11/06/23 ROM check. States she is doing she is doing well, however she has a very sensitive area where the incision site is causing her a lot of pain. Patient reports her ROM is better. She is still working with O.T. Allergies No Known Allergies Allergy (Verified 01/09/24 13:37) HPI PO-rt distal radius/ CTR 11/06/23-ROM check HPI Details Noemi is a 48 year old right hand dominant woman who returns S/P right distal radius ORIF, carpal tunnel release, and brachioradialis tenotomy, DOS: 11/06/23. She is here for a ROM check Her right wrist pain has improved but continues to be present. She continues to have a painful burning sensation on the radial and volar aspect of her right wrist and hand, and near her incision site. She says even the sleeve of her blouse or shirt can feel painful in this area. She says this has perhaps improved slightly with OT, but continues to be her primary complaint of pain She has been working with OT hand therapy, which she feels is helping her She says her sensation in her thumb, index, and middle fingers have improved since her surgery. 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 Good APB muscle belly firing Some hypersensitivity now to the radial side of the wrist and radial aspect of the 1st metacarpal and then transversely across the volar aspect of the distal forearm and then onto the carpal tunnel incision site. She is working on desensitization exercises with OT. She can make a fist and extend all of her digits. Full active range of motion of the thumb. Vascular: Cap refill brisk ROM: She was able to make a fist today and extend all her digits The skin on the tips of all digits is intact. She no longer has any swelling or ecchymosis. She has ~ 65-70 degrees wrist extension She has ~ 50 degrees wrist flexion Full wrist prono-supination. This is an improvement. DRUJ stable on exam Cap refill is brisk Psych Appearance: grossly normal Affect: normal affect Attitude: cooperative Assessment & Plan Assessment & Plan (1) Distal radius fracture, right: Code(s): S52.501A - Unspecified fracture of the lower end of right radius, initial encounter for closed fracture Qualifiers: Encounter type: subsequent encounter Fracture healing: with routine healing Fracture morphology: unspecified fracture morphology Fracture type: closed Qualified Code(s): S52.501D - Unspecified fracture of the lower end of right radius, subsequent encounter for closed fracture with routine healing (2) Carpal tunnel syndrome of right wrist: Code(s): G56.01 - Carpal tunnel syndrome, right upper limb Plan Assessment & Plan: 1. Right Distal radius fracture, S/P ORIF S/P fall, DOI: 10/26/23 DOS: 11/06/23 2. Right carpal tunnel syndrome, S/P release S/P fall, DOI: 10/26/23 DOS: 11/06/23 She still has some numbness, but feels some of her sensation has improved. 3. Some hypersensitivity in a branch of the superficial radial nerve distribution, and now in a transverse strip across the volar aspect of the distal forearm and extending then distally into the carpal tunnel. This last part appears to be a change from the previous exam last visit.. She says the sensation is intact in this area however. The patient appears to be doing well post-operatively, though still with some complaint of hypersensitivity.. I educated her about the post-operative course I discussed activity modifications, she is to work on hand & wrist ROM exercises at home. she has improved her ROM with Ot hand therapy. 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 I explained that she can now start normalizing her function, including increasing pushing and pulling and lifting with her right hand. She will follow up prn. Scribed for Betty Guan MD by Omer Mon, medical dosimetrist, on 01/09/24 at 2:20 PM, EST. Coding Level of Care Code Global (06319) Diagnoses Closed fracture of distal end of right radius with routine healing, unspecified fracture morphology, subsequent encounter S52.501D Encounter type: subsequent encounter Fracture healing: with routine healing Fracture morphology: unspecified fracture morphology Fracture type: closed Carpal tunnel syndrome of right wrist G56.01
== END 2024-01-09 15:00 | disposition home or self-care (01) ==
PROVIDERS: PCP Pediatrics; Visit Provider Orthopaedic Surgery
DX: S52.501D Unspecified fracture of the lower end of right radius, subsequent encounter for closed fracture with routine healing (principal); G56.01 Carpal tunnel syndrome, right upper limb
CPT/HCPCS: 99024

== ENCOUNTER → 2024-01-09 12:58 | Outpatient (BNVA) | payer OTHER, SELFPAY | PROVIDERS: PCP Pediatrics; Visit Provider Orthopaedic Surgery | DX: Z09 Encounter for follow-up examination after completed treatment for conditions other than malignant neoplasm (principal); S52.501D Unspecified fracture of the lower end of right radius, subsequent encounter for closed fracture with routine healing; Z86.69 Personal history of other diseases of the nervous system and sense organs | CPT/HCPCS: 99212 ==

== ENCOUNTER 2024-01-23 15:00 | Outpatient (RCR) | payer OTHER, SELFPAY ==
--- NOTE | 2023-12-13 08:38 | MHC.OT.EP ---
[address] [phone] Occupational Therapy Plan of Care Patient Name: Noemi Mejía Date of Evaluation: 12/13/23 Diagnosis: R DRF ORIF R CTR Pain Location: Uncomfortable at rest, sharp pain w/ movement Shooting sharp pain occasionally Pain Score: 2 Pain Scale Used: Numeric (0 - 10) Aggravating Factors: Movement, general use Alleviating Factors: Elevation, ibuprophen 2x/day Assessment: 48 yo female slipped and fell at home, landing on her right hand/wrist. In ED, x-ray showed right comminuted intraarticular distal radius fx and she reported onset of numbness/tingling in R D1-D3. She is now post-op repair w/ ORIF and CTR. She presents today about 5 weeks post-op, pt has been weaning off brace wear and is back to work and attempting to do light things around the house, but has difficulty w/ simple tasks and is avoiding heavy lifting and forceful use. On assessment, her scar is well healing w/ some sensitivity to touch, but otherwise sensation in intact in digits and palm. She does have irritation of the superficial radial sensory nerve over dorsal forearm to wrist. Wrist range is limited in supination, flexion and extension, but she has good understanding of exercises from post-op visits and reports she has already seen improvements. I anticipate she will do well through course of occupational therapy and make good functional return. Frequency and Duration: The patient will be seen 2x/wk for 6 weeks Short Term Goals: Right gross grasp 20lb Wrist ext >60 Wrist flex >40 Wrist sup >50 Pt to report ease w/ light activities (folding laundry, self feeding, typing) Ind w/ desensitization techniques Placement Director Goals: Right gross grasp >50lb Wrist ext >70 Wrist flex >70 Wrist sup >sup Pt to report ease w/ moderate lifting tasks (full laundry, vacuum, cookware) QuickDASH score <35pts Treatment Plan: Therapeutic Exercise Therapeutic Activity Home Exercise Program Patient Education Desensitization/Sensory Re-ed Edema Control ADL Training Paraffin Fluidotherapy MHP Cold Packs Joint Mobilization Soft Tissue Mobilization Kinesiotaping Electronically Signed By: Joselyn Isaac, OTR/L CHT Please Sign and return to therapist. Thank you once again for your referral.
--- NOTE | 2024-01-08 11:14 | MHC.OT.OP ---
[address] [phone] F: [phone] Occupational Therapy Progress Note Patient Name: Noemi Mejía Diagnosis: R DRF ORIF, R CTR Date of Surgery: 11/06/23 Date of Evaluation: 12/13/23 Treatments to Date: 6 Subjective: I feel like maybe it's getting better, but then days it's still bad Pain Score: 2 Pain Location: right wrist Objective Measures: Forearm 85/80 Wrist 66/60 -> 72/70 post tx Gross grasp R 52lb (L 75lb) Status: Progressing Assessment: Noemi is about 8 weeks post-op, continues to make gains w/ ROM and strength, increased ease w/ activities at home, still avoiding heavy lifting/carrying (full laundry, heavy dishes). Good carry over w/ HEP and motivated with therapy. High sensitivity over well healed incision, but improving with scar and edema management techniques and desensitization program. Short Term Goals: Right gross grasp 20lb (met) Wrist ext >60 (met) Wrist flex >40 (met) Wrist sup >50 (met) Pt to report ease w/ light activities (folding laundry, self feeding, typing) (met) Ind w/ desensitization techniques Intermediate Goals: Right gross grasp >50lb Wrist ext >70 Wrist flex >70 Wrist sup >70 Pt to report ease w/ moderate lifting tasks (full laundry, vacuum, cookware) QuickDASH score <35pts Frequency and Duration: The patient will be seen 2x/wk for 2 weeks Treatment Plan: Therapeutic Exercise Therapeutic Activity Home Exercise Program Patient Education Desensitization/Sensory Re-ed Edema Control Paraffin Fluidotherapy MHP Cold Packs Soft Tissue Mobilization Kinesiotaping Electronically Signed By: Joselyn Isaac OTR/L CHT Reviewed/agree with student documentation: Therapist:
--- NOTE | 2024-02-19 08:19 | MHC.OT.DC ---
[address] [phone] F: [phone] Occupational Therapy Discharge Note Patient Name: Noemi Mejía Provider: Betty Guan MD Diagnosis: R DRF ORIF, R CTR Date of Surgery: 11/06/23 Date of Evaluation: 12/13/23 Date of Discharge: 02/19/24 Treatments to Date: 9 Discharge Status: Independent with HEP Patient Elected to Stop Discharge Summary: Noemi is doing fairly well s/p right DRF w/ CTR. She was last seen several; weeks ago at 9 weeks post-op and continued to make gains w/ ROM and strength. She has had increased ease w/ activities at home, had still avoiding heavy lifting/carrying (full laundry, heavy dishes). She has good carry over w/ HEP and was showing good progression towards goals, but has not followed up for further appointments. Electronically Signed By: Joselyn Isaac OTR/[place] CHT Reviewed/agree with student documentation: Therapist: Please Sign and return to therapist, thank you for your referral.
== END 2024-02-19 08:22 | disposition home or self-care (01) ==
LOC: HO.OT 15:00
PROVIDERS: PCP Pediatrics; Visit Provider Orthopaedic Surgery
DX: G56.01 Carpal tunnel syndrome, right upper limb (principal); S52.501A Unspecified fracture of the lower end of right radius, initial encounter for closed fracture
CPT/HCPCS: 97110; 97140; 97165